=== PATIENT | male | born 1960 | race Caucasian/White ===

== ENCOUNTER 2020-10-07 09:42 | Outpatient (CLI) | payer OTHER, SELFPAY ==
[2020-10-08 22:46] LABS: SARS-CoV-2 RNA PCR Negative
== END 2020-10-07 09:43 | disposition home or self-care (01) ==
LOC: CHSLAB 09:49
PROVIDERS: PCP Internal Medicine; Visit Provider Internal Medicine
DX: Z20.822 Contact with and (suspected) exposure to COVID-19 (principal)
CPT/HCPCS: C9803; U0003; U0005

== ENCOUNTER 2021-01-23 09:47 | Outpatient (CLI) | payer OTHER, SELFPAY | END 2021-01-23 09:48 | disposition home or self-care (01) | LOC: CHSCOVIDVC 09:47 | PROVIDERS: PCP Internal Medicine | DX: Z23 Encounter for immunization (principal) | CPT/HCPCS: 0011A; 91301 ==

== ENCOUNTER 2021-02-20 09:53 | Outpatient (CLI) | payer OTHER, SELFPAY | END 2021-02-20 09:54 | disposition home or self-care (01) | LOC: CHSCOVIDVC 09:53 | PROVIDERS: PCP Internal Medicine | DX: Z23 Encounter for immunization (principal) | CPT/HCPCS: 0012A; 91301 ==

== ENCOUNTER 2022-01-06 13:22 | Emergency (ER) | payer OTHER, SELFPAY ==
--- NOTE | ~2022-01-06 | XR_ITS ---
EXAMINATION: XR finger 1st RT min 2V INDICATION: Right first finger pain TECHNIQUE: Three views of the right first finger are obtained. COMPARISON: None available FINDINGS: There is distal soft tissue swelling of the first finger. Subtle irregularity is seen in th e dorsal/lateral base of the first distal phalanx which has an appearance similar to that at the base of the first proximal phalanx. There is mild polyarticular osteoarthritis. IMPRESSION: 1. Soft tissue swelling without definite acute osseous abnormality. Reviewed, dictated and finalized at location A.
[2022-01-06 13:35] VITALS: BP 175/81; PULSE 88; RESP 20; TEMP 37.5; O2SAT 98
--- NOTE | 2022-01-06 13:59 | ED.WOUNDLAC ---
HPI - Wound/Laceration General Chief Complaint: Wound/Laceration Stated Complaint: CUT THUMB Source: patient and family Mode of arrival: ambulatory History of Present Illness HPI narrative: this is a 61-year-old gentleman with no significant past medical history presents with a laceration on the palmar surface of his right thumb superficial flap like laceration that occurred earlier today when he got caught door handle that was missing the knob. There is superficial flap like laceration currently no bleeding not up-to-date with his tetanus with no numbness or tingling has good range of motion. Onset (ago): hour(s) Location: other (Thumb) Place: work Patient tetanus UTD: No Context: accidental Associated symptoms: none Review of Systems Review of Systems: All systems reviewed & are unremarkable except as noted in HPI and below PMFSH Past Medical History Medical History Patient denies medical problems Exam Const: General: no acute distress HENMT: Head: normal to inspection Eyes: Conjunctivae: conjunctivae normal Pupils: Equal, round and reactive pupils present Neck: Neck: normal visual inspection, no lymphadenopathy and no meningeal signs Chest: Chest palpation & inspection: normal inspection of the chest Resp: Effort & Inspection: normal respiratory effort Auscultation: clear to auscultation bilaterally Cardio: Rate: regular rate Rhythm: regular rhythm GI: GI Palp: Yes Soft to palpation Percussion: Yes normal to percussion Urinary Catheter: Urinary Catheter: patent and draining Back/Spine/Pelvis: Back: no CVA tenderness Skin: General skin exam: normal color Rashes: no rashes Wounds: wounds noted ( flap-like laceration palmar surface of his right thumb) Neuro: General: patient oriented x3 and moves all extremities Extrem: General: normal to inspection and no pedal edema Psych: Mental Status: mental status grossly normal Course Course Emergency Course: wound was explored and cleaned and x-ray performed which showed no acute fractures and discuss this with family the patient received a tetanus vaccine, and Dermabond was placed on the wound/laceration. Procedures Laceration Laceration 1: Date: 01/06/22 Time: 14:02 Site: hand ( Right thumb) Side (If applicable): right Size (cm): 2.5 Description: flap Pre-repair: wound explored, irrigated and irrigated extensively ====== Skin Level ====== Skin layer closed with: dermabond ====== Subcutaneous Layer ====== ====== Muscle Layer ====== ====== Tendon Layer ====== Critical Care Time Critical Care Time Critical Care Time: No Discharge Plan Discharge Clinical Impression: Laceration Patient Disposition: Home, Self-Care Condition: Stable Instructions: Antibiotic Form, Skin Adhesive Care (ED), Laceration (ED) Additional Instructions: can take Tylenol or Motrin for pain or discomfort and follow-up with primary care physician if symptoms persist or worsen. Follow-up/Referrals: Tito Venegas MD [Primary Care Provider] - Time of Disposition: 14:03
[2022-01-06] MEDS: TETANUS,DIPHTHERIA,AC PERTUSSIS ADULT 0.5 ML (ADACEL) IM (14:10)
[2022-01-06 14:19] VITALS: BP 149/68; PULSE 82; RESP 20; TEMP 37; O2SAT 98
== END 2022-01-06 14:30 | disposition home or self-care (01) ==
PROVIDERS: Emergency Provider Emergency Medicine; PCP Internal Medicine
DX: S61.011A Laceration without foreign body of right thumb without damage to nail, initial encounter (principal); W45.8XXA Other foreign body or object entering through skin, initial encounter
CPT/HCPCS: 12001; 73140; 90471; 90715; 99283

== ENCOUNTER 2022-03-07 14:15 | Outpatient (NON) | payer OTHER, SELFPAY | END 2022-03-07 14:16 | disposition home or self-care (01) | LOC: CHSLAB 14:17 | PROVIDERS: Visit Provider Nurse Practitioner Family | DX: N39.0 Urinary tract infection, site not specified (principal) | CPT/HCPCS: 87077; 87086; 87088; 87186 ==

== ENCOUNTER 2022-03-15 11:50 | Outpatient (CLI) | payer OTHER, SELFPAY ==
--- NOTE | ~2022-03-15 | US_ITS ---
EXAMINATION: US scrotum doppler DATE: 03/15/2022 13:09 INDICATION: Right testicular swelling. TECHNIQUE: Grayscale and Doppler ultrasound images of the testes were obtained. COMPARISON: None. FINDINGS: The right testis measures 4.6 x 2.4 x 4.1. The left testis measures 5.2 x 2.5 x 4.4. Slight ly increased flow in the right testicle, with velocities increased relative to the left. The right ep ididymis enlarged and hypervascular. 2 epididymal cysts at the head and tail. The left epididymis is normal with normal vascular flow and an epididymal head cyst. Moderate volume complex right hydrocele . Small left hydrocele. No varicoceles. There is scrotal skin thickening. IMPRESSION: 1. Right epididymoorchitis. 2. Moderate volume right pyocele. 3. No definite testicular or scrotal abscess detected at this time. Reviewed, dictated and finalized at location K.
== END 2022-03-15 11:51 | disposition home or self-care (01) ==
LOC: CHSIMG 11:51
PROVIDERS: PCP Family Medicine; Visit Provider Nurse Practitioner Family
DX: N50.89 Other specified disorders of the male genital organs (principal)
CPT/HCPCS: 76870; 93976

== ENCOUNTER 2022-05-20 15:48 | Outpatient (NON) | payer OTHER, SELFPAY | END 2022-05-20 15:49 | disposition home or self-care (01) | LOC: CHSLAB 15:50 | PROVIDERS: Visit Provider Urology | DX: N39.0 Urinary tract infection, site not specified (principal) | CPT/HCPCS: 87077; 87086; 87088; 87186 ==

== ENCOUNTER 2022-09-12 15:51 | Outpatient (NON) | payer OTHER, SELFPAY | END 2022-09-12 15:52 | disposition home or self-care (01) | LOC: CHSLAB 15:52 | PROVIDERS: PCP Urology; Visit Provider Urology | DX: N39.0 Urinary tract infection, site not specified (principal) | CPT/HCPCS: 87077; 87086; 87088; 87186 ==

== ENCOUNTER 2023-01-18 07:41 | Outpatient (CLI) | payer OTHER, SELFPAY ==
[2023-01-18 09:30] LABS: Alanine Aminotransferase 20 U/L (16-63); Albumin Level 3.2 g/dL (3.4-5.0); Alkaline Phosphatase 95 U/L (46-116); Anion Gap 8 mmol/L (8-16); Aspartate Amino Transferase 20 U/L (15-37); Bilirubin,Total 0.4 mg/dL (0.00-1.00); Blood Urea Nitrogen 19 mg/dL (7-18); Calcium 8.7 mg/dL (8.5-10.1); Carbon Dioxide 28 mmol/L (21-32); Chloride 107 mmol/L (98-108); Estimated Glomerular Filt Rate > 60; Glucose 106 mg/dL (70-99); Osmolality Calculated 298 mOsm/kg (285-295); Potassium 4.3 mmol/L (3.5-5.1); Sodium 143 mmol/L (136-145); Total Protein 6.9 g/dL (6.4-8.2)
== END 2023-01-18 07:42 | disposition home or self-care (01) ==
LOC: CHSLAB 07:44
PROVIDERS: PCP Urology; Visit Provider Urology
DX: N39.0 Urinary tract infection, site not specified (principal); R31.9 Hematuria, unspecified; N42.9 Disorder of prostate, unspecified
CPT/HCPCS: 36415; 80053; 84153